=== PATIENT | male | born 1965 | race Two or more races ===

== ENCOUNTER 2025-02-26 14:43 | Inpatient (IN) | payer MEDICAID, OTHER ==
[~2025-02-26] VITALS: Ht 152.4 cm; Wt 101.0 kg
--- NOTE | 2025-02-26 15:22 | ED.PDOC ---
HPI (NEURO) HPI Comments 59 y.o male with PMHx of DM and HTN, presents to the ED for a chief complaint of a generalized headache associated with blurred vision that started this morning around 10:00am. Patient reports he woke up with a sharp pain localized at the top of his head and is now generalized. He mentions his vision has worsened over the past couple of months however today states blurred vision is at its worse. He usually compliant with all his medication but ran out of his DM medication in which he takes pills (unsure of name) and Ozempic a couple days ago. Upon ED arrival, patient had a BG of 385. He denies any recent head injury, nausea, vomiting, tremors, SOB, abdominal pain, fever, chills or recent illness. Chief Complaint: Headache Time Seen by MD: 15:06 Reviewed Notes: Nurses Notes, Medications, Allergies Mode of Arrival: Ambulatory Severity: Moderate Headache Severity: Moderate, Worst Headache of life Timing: Hours Duration: Since onset Headache Quality: Sharp Headache Location: Generalized Onset: At rest Circumstances: Spontaneous Symptoms: Change of vision History of: DM, Hypertension Associated Signs and Symptoms: Headache, Blurred Vision Past Medical History PAST MEDICAL HISTORY: DM, HTN Family History Family History: Reviewed,noncontributory to illness Social History Smoker: Non-Smoker Alcohol: Denies ETOH Use Drugs: Denies Drug Use Lives In: Home Constitutional: denies: chills, diaphoresis, fatigue, fever, malaise, sweats, weakness, others EENTM: denies: blurred vision, double vision, ear bleeding, ear discharge, ear drainage, ear pain, ear ringing, eye pain, eye redness, hearing loss, mouth pain, mouth swelling, nasal discharge, nose bleeding, nose congestion, nose pain, photophobia, tearing, throat pain, throat swelling, voice changes, others Respiratory: denies: cough, hemoptysis, orthopnea, SOB at rest, shortness of breath, SOB with excertion, stridor, wheezing, others Cardiovascular: denies: chest pain, dizzy spells, diaphoresis, Dyspnea on exertion, edema, irregular heart beat, left arm pain, lightheadedness, palpitations, PND, syncope, others Gastrointestinal: denies: abdomen distended, abdominal pain, blood streaked bowels, constipated, diarrhea, dysphagia, difficulty swallowing, hematemesis, melena, nausea, poor appetite, poor fluid intake, rectal bleeding, rectal pain, vomiting, others Genitourinary: denies: burning, dysuria, flank pain, frequency, hematuria, incontinence, penile discharge, penile sore, pain, testicle pain, testicle swelling, urgency, others Neurological: reports: headache, others; denies: dizziness, fainting, left sided numbness, left sided weakness, numbness, paresthesia, pre-existing deficit, right sided numbness, right sided weakness, seizure, speech problems, tingling, tremors, weakness Musculoskeletal: denies: back pain, gout, joint pain, joint swelling, muscle pain, muscle stiffness, neck pain, others Integumetry: denies: bruises, change in color, change in hair/nails, dryness, laceration, lesions, lumps, rash, wounds, others Allergic/Immunocompromised: denies: Difficulty Healing, Frequent Infections, Hives, Itching, others Hematologic/Lymphatic: denies: anemia, blood clots, easy bleeding, easy bruising, swollen glands, others Endocrine: denies: excessive hunger, excessive sweating, excessive thirst, excessive urination, flushing, intolerance to cold, intolerance to heat, unexplained weight gain, unexplained weight loss, others Psychiatric: denies: anxiety, bipolar disorder, depression, hopeless, panic disorder, schizophrenia, sleepless, suicidal, others All Other Systems: Reviewed and Negative Physical Exam General Appearance: No Apparent Distress, Normal HEENT: Normal ENT Inspection, Pharynx Normal, TMs Normal Neck: Full Range of Motion, Non-Tender, Normal, Normal Inspection Respiratory: Chest Non-Tender, Lungs Clear, No Accessory Muscle Use, No Respira tory Distress, Normal Breath Sounds Cardiovascular: No Edema, No JVD, No Murmur, No Gallop, Normal Peripheral Pulses, Regular Rate/Rhythm Breast Exam: Deferred Gastrointestinal: No Organomegaly, Non Tender, No Pulsatile Mass, Normal Bowel Sounds, Soft Genitalia: Deferred Pelvic: Deferred Rectal: Deferred Extremities: No calf tenderness, Normal capillary refill, Normal inspection, Normal range of motion, Non-tender, No pedal edema Musculoskeletal : Apperance: Normal Neurologic: Alert, christmas tree grader II-XII nml as Tested, No Motor Deficits, Normal Affect, Normal Mood, No Sensory Deficits Cerebellar Function: Normal Reflexes: Normal Skin: Dry, Normal Color, Warm Lymphatic: No Adenopathy Was a procedure done? Was a procedure done?: No Differential Diagnosis (SZ) CVA: CVA, TIA Headache: Cluster, Migraine, CVA, Intracerebral Hemorrhage, Subarachnoid Hemorrhage, Other (hyperglycemia, DKA) X-Ray, Labs, Meds, VS Vital Signs Date Time Temp Pulse Resp B/P (MAP) Pulse Ox O2 Delivery O2 Flow Rate FiO2 02/26/25 17:03 98.7 71 16 149/104 (119) 95 98.7 02/26/25 14:47 97.7 77 18 160/96 95 97.7 Lab Test 02/26/25 16:00 Range/Units White Blood Count 6.8 4.4-10.8 10^3/uL Red Blood Count 5.63 4.5-5.90 10^6/uL Hemoglobin 16.5 13.5-17.5 g/dL Hematocrit 47.9 41.0-53.0 % Mean Corpuscular Volume 85.1 80.0-100.0 fL Mean Corpuscular Hemoglobin 29.4 28.0-32.0 pg Mean Corpuscular Hemoglobin Concent 34.5 32.0-36.0 g/dL Red Cell Distribution Width 14.1 11.8-14.3 % Platelet Count 104 L 140-450 10^3/uL Mean Platelet Volume 9.9 6.9-10.8 fL Neutrophils (%) (Auto) 61.1 37.0-80.0 % Lymphocytes (%) (Auto) 28.7 10.0-50.0 % Monocytes (%) (Auto) 8.2 0.0-12.0 % Eosinophils (%) (Auto) 1.6 0.0-7.0 % Basophils (%) (Auto) 0.4 0.0-2.0 % Neutrophils # (Auto) 4.1 1.6-8.6 10 ^3/uL Lymphocytes # (Auto) 1.9 0.4-5.4 10 ^3/uL Monocytes # (Auto) 0.6 0-1.3 10 ^3/uL Eosinophils # (Auto) 0.1 0-0.8 10 ^3/uL Basophils # (Auto) 0 0-0.2 10 ^3/uL Nucleated Red Blood Cells 0.1 % Sodium Level 136 136-145 mmol/L Potassium Level 4.2 3.5-5.1 mmol/L Chloride Level 99 98-107 mmol/L Carbon Dioxide Level 27 20-31 mmol/L Anion Gap 10 5-15 Blood Urea Nitrogen 16 9-23 mg/dL Creatinine 1.20 0.700-1.30 mg/dL Glomerular Filtration Rate Calc 70 >90 mL/min BUN/Creatinine Ratio 13.3 10.0-20.0 Serum Glucose 298 H 74-106 mg/dL Calcium Level 10.0 8.7-10.4 mg/dL Troponin I High Sensitivity 6 </=54 ng/L Time of 1ST Reevaluation: 15:21 Reevaluation 1ST: Unchanged Patient Education/Counseling: Diagnosis, Treatment, Prognosis Family Education/Counseling: No Family Present Departure 1 Departure Time of Disposition: 17:21 (Patient presents with signs symptoms concerning for TIA versus CVA. Patient's CT scan shows chronic involutional changes. X-ray looks benign. We will admit patient for further workup and expert consultation) Impression: Primary Impression: Blurry vision Additional Impressions: Generalized weakness Migraine Disposition: 09 ADMITTED INPATIENT Admit to: Tele Condition: Guarded Critical Care Note Critical Care Time?: Yes Critical care comment: Concern for TIA versus CVA Authorized and Performed by: Tiffani Lopez MD Total critical care time: Approximately 36 minutes Due to a high probability of clinically significant, life threatening deterioration, the patient required my highest level of preparedness to intervene emergently and I personally spent this critical care time directly and personally managing the patient. This critical care time included obtaining a history; examining the patient; pulse oximetry; ordering and review of studies; arranging urgent treatment with development of a management plan; evaluation of patient's response to treatment; frequent reassessment; and, discussions with other providers. This critical care time was performed to assess and manage the high probability of imminent, life-threatening deterioration that could result in multi-organ failure. It was exclusive of separately billable procedures and treating other patients and teaching time. Please see my other sections and the rest of the note for further information on patient assessment and treatment. Stability Stability form required: No I personally scribed for TIFFANI LOPEZ MD ([email or web address]) on 02/26/25 at 15:22. Electronically submitted by Jessy Mathews ([facility]). TIFFANI LOPEZ MD Feb 26, 2025 15:22
--- NOTE | 2025-02-26 16:19 | DVH ---
EXAM: XY CHEST PORTABLE HISTORY: ams, blurred vision TECHNIQUE: 1 view of the chest COMPARISON: None FINDINGS/IMPRESSION: LUNGS: No pleural effusion, consolidation, or pneumothorax. MEDIASTINUM: Unremarkable. BONES: No acute osseous abnormality. OTHER: None.
[2025-02-26 16:25] LABS: Hematocrit 47.9 % (41.0-53.0); Hemoglobin 16.5 g/dL (13.5-17.5); Mean Corpuscular Hemoglobin 29.4 pg (28.0-32.0); Mean Corpuscular Volume 85.1 fL (80.0-100.0); Nucleated Red Blood Cells % 0.1 %
--- NOTE | 2025-02-26 16:25 | DVH ---
CT HEAD WITHOUT CONTRAST INDICATION: ams, blurred vision EXAM DATE: 02/26/2025 03:46 PM COMPARISON: None RADIATION DOSE: CTDIvol: 53.5 mGy, DLP: 966.6 mGy*cm PROCEDURE: CT scans of the head were obtained from the vertex to the skull base. Sagittal and coronal reconstructions were provided. All CT scans at this medical facility are performed using dose modulation techniques as appropriate to a performed exam including the following: Automated exposure control was utilized; adjustment of the MA and/or KV according to patient size; and use of iterative reconstruction technique. FINDINGS: Evaluation is slightly degraded by motion artifact and positioning. No acute territorial infarct, intracranial hemorrhage, or mass effect. There are global involutional changes with compensatory prominence of the ventricles and sulci. The orbits are normal. The paranasal sinuses and mastoid air cells are clear. The osseous structures are unremarkable. IMPRESSION: 1. No acute territorial infarct, intracranial hemorrhage, or mass effect. 2. Age-related involutional changes. 3. If clinical symptoms persist, MRI may be beneficial in further evaluation.
[2025-02-26 16:34] LABS: Chloride 99 mmol/L (98-107); Potassium 4.2 mmol/L (3.5-5.1)
[2025-02-26 16:35] LABS: Anion Gap 10 (5-15); Carbon Dioxide 27 mmol/L (20-31)
[2025-02-26 16:36] LABS: Calcium 10.0 mg/dL (8.7-10.4); Sodium 136 mmol/L (136-145)
[2025-02-26 16:40] LABS: BUN/Creatinine Ratio 13.3 (10.0-20.0); Blood Urea Nitrogen 16 mg/dL (9-23)
[2025-02-26 16:42] LABS: Glucose 298 mg/dL (74-106)
[2025-02-26 18:50] VITALS: PULSE 68; RESP 15; O2SAT 97
[2025-02-26] MEDS: METOCLOPRAMIDE HCL 5MG/ml INJ 2ml VIAL IV ONE (19:00)
[2025-02-26] MEDS: ACETAMINOPHEN 325 MG TAB PO ONE ×2 (19:01→20:40)
[2025-02-26] MEDS: SODIUM CHLORIDE 0.9% 1,000 ML IV ONE (19:01)
[2025-02-26 19:41] LABS: Urine Protein, UAD 1+ (Negative)
[2025-02-26] MEDS: METOCLOPRAMIDE HCL 5MG/ml INJ 2ml VIAL ONE (20:39)
[2025-02-26 21:05] VITALS: O2SAT 89
[2025-02-26] MEDS ORDERED: DEXTROSE (50%) 50ML SYRG IV PRN (21:15)
--- NOTE | 2025-02-26 21:23 | DVHHPRES ---
History of Present Illness Resident Creating Document: LILLIE BRYAN RESIDENT History of Present Illness Mr Elie Vigil 59-year-old male with a past medical history of insulin non- dependent type 2 diabetes mellitus, hypertension compliant with medications, hypercholesterolemia, diverticulosis presented to the ER with the complaints of frontal headache later radiating to whole head, no associated nausea, vomiting or fever. He takes his antihypertensive medications regularly. He had 1 episode of blurry vision, now improved. He denies any dizziness, loss of consciousness or altered mental status. He does not have any chest pain, shortness of breath, abdominal pain, urinary symptoms or any other complaints. Past medical and surgical history: As above Smoking history: 1 cigarette per day, for many years Alcohol: Never Drugs: Never Allergies: None Home medications: Losartan 100 mg, metformin, patient could not recall rest of the home medicines PCP: Code status: Review of Systems Other Headache Allergies: Coded Allergies: NO KNOWN ALLERGIES (Unverified , 02/26/25) Exam Vital Signs Vital Signs Date Time Temp Pulse Resp B/P (MAP) Pulse Ox O2 Delivery O2 Flow Rate FiO2 02/26/25 18:50 98.6 68 15 146/91 (109) 97 98.6 02/26/25 18:50 Room Air* 0 21 Exam Pt is lying on bed General Appearance: Alert, Oriented X3, Cooperative, Mild distress HEENT: Atraumatic, Mucous membranes moist/pink Respiratory: Clear to auscultation, Normal air movement, No added sounds Cardiovascular: Regular rate, Normal S1, Normal S2, No murmurs Abdominal/ : Active bowel sounds, Soft, no distention, no swelling or tenderness. Extremities: No edema, Normal pulses, No tenderness/swelling Skin: No Significant rash, except past surgical scars Neuro: Normal speech, sensorimotor deficits none Psych/Mental Status: Mental status NL, Mood NL Nurse was there as baker during examination Labs/Xrays Labs Test 02/26/25 19:11 02/26/25 18:59 02/26/25 16:00 Range/Units Troponin I High Sensitivity 7 </=54 ng/L Urine Color Yellow Yellow Urine Clarity Clear Clear Urine pH 6.0 5.0-9.0 Urine Specific [place] 1.035 1.001-1.035 Urine Protein 1+ H Negative Urine Ketones Negative Negative Urine Blood Negative Negative /uL Urine Nitrite Negative Negative Urine Bilirubin Negative Negative Urine Urobilinogen Normal Negative mg/dL Urine Leukocyte Esterase Negative Negative /uL Urine RBC 3 0 - 3 /hpf Urine Microscopic WBC < 1 0-3 /HPF Urine Squamous Epithelial Cells Few <5 /hpf Urine Bacteria None seen None Seen /hpf Urine Glucose 4+ H Normal mg/dL White Blood Count 6.8 4.4-10.8 10^3/uL Red Blood Count 5.63 4.5-5.90 10^6/uL Hemoglobin 16.5 13.5-17.5 g/dL Hematocrit 47.9 41.0-53.0 % Mean Corpuscular Volume 85.1 80.0-100.0 fL Mean Corpuscular Hemoglobin 29.4 28.0-32.0 pg Mean Corpuscular Hemoglobin Concent 34.5 32.0-36.0 g/dL Red Cell Distribution Width 14.1 11.8-14.3 % Platelet Count 104 L 140-450 10^3/uL Mean Platelet Volume 9.9 6.9-10.8 fL Neutrophils (%) (Auto) 61.1 37.0-80.0 % Lymphocytes (%) (Auto) 28.7 10.0-50.0 % Monocytes (%) (Auto) 8.2 0.0-12.0 % Eosinophils (%) (Auto) 1.6 0.0-7.0 % Basophils (%) (Auto) 0.4 0.0-2.0 % Neutrophils # (Auto) 4.1 1.6-8.6 10 ^3/uL Lymphocytes # (Auto) 1.9 0.4-5.4 10 ^3/uL Monocytes # (Auto) 0.6 0-1.3 10 ^3/uL Eosinophils # (Auto) 0.1 0-0.8 10 ^3/uL Basophils # (Auto) 0 0-0.2 10 ^3/uL Nucleated Red Blood Cells 0.1 % Sodium Level 136 136-145 mmol/L Potassium Level 4.2 3.5-5.1 mmol/L Chloride Level 99 98-107 mmol/L Carbon Dioxide Level 27 20-31 mmol/L Anion Gap 10 5-15 Blood Urea Nitrogen 16 9-23 mg/dL Creatinine 1.20 0.700-1.30 mg/dL Glomerular Filtration Rate Calc 70 >90 mL/min BUN/Creatinine Ratio 13.3 10.0-20.0 Serum Glucose 298 H 74-106 mg/dL Calcium Level 10.0 8.7-10.4 mg/dL SEPSIS Sepsis Screen Date sepsis recognized/suspect: Feb 26, 2025 Time Sepsis recognized/suspect: 1448 Recent Procedure: No On Antibiotic Therapy: No Respiratory Rate >20: No Heart Rate >90: No Temp<36 C (96.8 F) or >38.3 C: No SBP <90 or MAP <65 mmHG: No New Acute Mental Status Change: No Is the patient on CPAP, BIPAP,: No Physician Orders Chest Portable (02/26/25 15:45) Head Without Contrast (02/26/25 15:45) Electrocardigram (02/26/25 15:45) Electrocardigram (02/26/25 16:45) Electrocardigram (02/26/25 18:45) Admit (02/26/25 21:10) Stat Ekg For Chest Pain (02/26/25 21:10) Notify Md Of Changes From Base (02/26/25 21:10) Metal Tank Erector For 24 Hours (02/26/25 21:10) Emergency Dysrhythmia Protocol (02/26/25 21:10) Rhythm Strips Once Every Shift (02/26/25 21:10) Urinalysis (02/26/25 21:14) Drug Screen (02/26/25 21:14) Insulin Lantus (Glargine) (Lantus) (02/27/25 07:00) Glucose Blood (Accu-Chek Comfort Curve T (02/26/25 22:00) Mild Sliding Scale (02/26/25 22:00) Dextrose 50% Syringe (02/26/25 21:15) Losartan Tablet (Cozaar Tablet) (02/27/25 10:00) Echo 2d Mode Cardiac Dop (02/26/25 21:14) B-Type Natriuretic Peptide (02/26/25 21:14) Vital Signs Date Time Temp Pulse Resp B/P (MAP) Pulse Ox O2 Delivery O2 Flow Rate FiO2 02/26/25 18:50 98.6 68 15 146/91 (109) 97 98.6 02/26/25 18:50 68 15 97 Room Air* 0 21 02/26/25 17:03 98.7 71 16 149/104 (119) 95 98.7 02/26/25 14:47 97.7 77 18 160/96 95 97.7 Laboratory Tests Test 02/26/25 16:00 White Blood Count 6.8 10^3/uL (4.4-10.8) Medications Medications Dose Ordered Sig/Analia Route Start Time Stop Time Status Last Admin Dose Admin Acetaminophen 650 mg ONCE ONCE PO 02/26/25 17:30 02/26/25 17:43 DC 02/26/25 19:01 650 MG Metoclopramide HCl 10 mg ONCE ONCE IV 02/26/25 17:30 02/26/25 17:43 DC 02/26/25 19:00 10 MG Sodium Chloride 1,000 ml @ 1,000 mls/hr Q1H ONCE IV 02/26/25 17:30 02/26/25 18:29 DC 02/26/25 19:01 1,000 MLS/HR Assessment/Plan Assessment/Plan Hypertensive urgency with intractable headache -head CT:No acute territorial infarct, intracranial hemorrhage, or mass effect.Age-related involutional changes. If clinical symptoms persist, MRI may be beneficial in further evaluation. -Tylenol -losartan 100 mg -EKG and echocardiography ordered -troponin normal Uncontrolled type 2 diabetes mellitus -Hemoglobin A1c 10.6 -insulin Lantus -Insulin sliding scale -monitor blood glucose GI prophylaxis: Pantoprazole DVT prophylaxis: Lovenox Diet: Cardiac Goals of care discussed with the patient for more than 27 minutes: Full code status Case discussed with , patient and RN Plan discussed with: Patient, Other (RN) My Orders Orders - LILLIE BRYAN RESIDENT Procedure Category Date Status Time Admit ADMIT 02/26/25 Transmitted 21:10 Stat Ekg For Chest [facility] 02/26/25 In Process Pain 21:10 Notify Md Of Changes [facility] 02/26/25 In Process From Base 21:10 Metal Tank Erector For [facility] 02/26/25 In Process 24 Hours 21:10 Emergency Dysrhythmia [facility] 02/26/25 In Process Protocol 21:10 Rhythm Strips Once [facility] 02/26/25 In Process Every Shift 21:10 Urinalysis LAB 02/26/25 Transmitted 21:14 Drug Screen LAB 02/26/25 Transmitted 21:14 Insulin Lantus PHA 02/27/25 Logged (Glargine) (Lantus) 07:00 Glucose Blood PHA 02/26/25 Transmitted (Accu-Chek Comfort 22:00 Mild Sliding Scale PHA 02/26/25 Transmitted 22:00 Dextrose 50% Syringe PHA 02/26/25 Transmitted 21:15 Losartan Tablet PHA 02/27/25 Transmitted (Cozaar Tablet) 10:00 Echo 2d Mode Cardiac US 02/26/25 Logged DOP 21:14 B-Type Natriuretic LAB 02/26/25 Transmitted Peptide 21:14 Date of Service: Feb 26, 2025 Billing Provider: DULCE TERRY MD Common Visit Codes: [id number] INP/OBS CARE (HIGH) Secondary Visit Codes: [id number] CARE PLAN 30 MINUTES LILLIE BRYAN RESIDENT Feb 26, 2025 21:23
[2025-02-26] MEDS: ACCU-CHEK COMFORT CURVE STRIP VI SCH (22:37)
[2025-02-26] MEDS: InsuLIN REG 1unit/0.01ml Soln (100units/ml) SC SCH (22:48)
[2025-02-27] VITALS (11 sets, daily range): BP systolic 123–140; BP diastolic 78–93; PULSE 60–78; RESP 13–18; TEMP 97.7–98.4; O2SAT 91–97
[2025-02-27 01:30] LABS: Opiate Scree,Urine Pos (NEGATIVE)
[2025-02-27 01:31] LABS: Amphetamine Screen, Urine Neg (NEGATIVE); Barbiturate Scree,Urine Neg (NEGATIVE); Benzodiazephine Screen, Urine Neg (NEGATIVE); Cannabinoid Screen, Urine Neg (NEGATIVE); Cocaine Screen, Urine Neg (NEGATIVE); Phencyclidine Screen, Urine Neg (NEGATIVE)
[2025-02-27] MEDS ORDERED: GLUC0.8I2 (01:43)
[2025-02-27] MEDS ORDERED: HYDR-4902 PO (01:43)
[2025-02-27] MEDS ORDERED: METF-370 PO (01:43)
[2025-02-27] MEDS: PANTOPRAZOLE 40 MG TAB PO SCH (06:14)
[2025-02-27] MEDS: INSULIN LANTUS (GLARGINE) 1 /0.01ml (100units/ml) SC SCH (06:15)
--- NOTE | 2025-02-27 06:20 | ECG ---
[facility] Test Date: 2025-02-26 Test Time: 21:37:15 Pat Name: JOHN SHERMAN Department: Room: [address] [place] [address] Gender: M Talent Manager: LAUREN : 1965 Requested By: TIFFANI ALFARO Order Number: [id number] Reading MD: Chuck Godoy Measurements Intervals [place] Rate: 62 P: 29 FL: 166 QRS: 40 QRSD: 92 T: 45 QT: 428 QTc: 435 Interpretive Statements Sinus rhythm Electronically Signed On 02-27-2025 10:37:32 PST by Chuck Godoy Please click the below link to view image of tracing.
[2025-02-27] MEDS: ENOXAPARIN SOD 30 MG/0.3 ML SYRINGE ONE (08:55)
[2025-02-27] MEDS: LOSARTAN POTASSIUM 50 MG TAB ONE (08:56)
[2025-02-27] MEDS: LOSARTAN POTASSIUM 50 MG TAB PO SCH (09:36)
[2025-02-27] MEDS: ENOXAPARIN SOD 30 MG/0.3 ML SYRINGE SC SCH (09:37)
[2025-02-27 14:00] LABS: Chloride 101 mmol/L (98-107); Potassium 4.0 mmol/L (3.5-5.1); Sodium 137 mmol/L (136-145)
[2025-02-27 14:01] LABS: Anion Gap 10 (5-15); Calcium 9.3 mg/dL (8.7-10.4); Carbon Dioxide 26 mmol/L (20-31)
[2025-02-27 14:06] LABS: BUN/Creatinine Ratio 15.8 (10.0-20.0); Blood Urea Nitrogen 15 mg/dL (9-23)
[2025-02-27 14:09] LABS: Glucose 199 mg/dL (74-106)
--- NOTE | 2025-02-27 15:17 | DVHPN2 ---
Subjective This is a follow up on hypertensive urgency. Patient is currently denies any headache. 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 Medications Current Medications Medications Dose Ordered Sig/Analia Route Start Time Stop Time Status Last Admin Dose Admin Insulin Glargine 20 units QAM SC 02/27/25 07:00 Diagnostic Test (Pha) 1 strip ACHS 02/26/25 22:00 02/27/25 11:59 1 STRIP Insulin Human Regular ACHS SC 02/26/25 22:00 02/27/25 12:00 6 UNITS Dextrose 50 ml UD PRN IV 02/26/25 21:15 Losartan Potassium 100 mg DAILY PO 02/27/25 10:00 02/27/25 09:36 100 MG Pantoprazole Sodium 40 mg DAILY@0600 PO 02/27/25 06:00 02/27/25 06:14 40 MG Enoxaparin Sodium 30 mg DAILY SC 02/27/25 10:00 02/27/25 09:37 30 MG Laboratory Results Laboratory Tests 02/26/25 16:00 02/27/25 13:32 Chemistry Test 02/26/25 16:00 02/27/25 13:32 Calcium Level 10.0 mg/dL (8.7-10.4) 9.3 mg/dL (8.7-10.4) Cardiac Markers Test 02/26/25 16:00 B-Type Natriuretic Peptide 7.50 pg/mL (0-100) HgA1c, TSH Test 02/26/25 16:00 02/26/25 19:11 Hemoglobin A1c 10.6 % A1C (<5.7) H Thyroid Stimulating Hormone (TSH) 1.70 uIU/mL (0.55-4.78) Urinalysis Test 02/26/25 18:59 Urine Color Yellow (Yellow) Urine Clarity Clear (Clear) Urine pH 6.0 (5.0-9.0) Urine Specific [place] 1.035 (1.001-1.035) Urine Protein 1+ (Negative) H Urine Ketones Negative (Negative) Urine Blood Negative /uL (Negative) Urine Nitrite Negative (Negative) Urine Bilirubin Negative (Negative) Urine Urobilinogen Normal mg/dL (Negative) Urine Leukocyte Esterase Negative /uL (Negative) Urine RBC 3 /hpf (0 - 3) Urine Microscopic WBC < 1 /HPF (0-3) Urine Squamous Epithelial Cells Few /hpf (<5) Urine Bacteria None seen /hpf (None Seen) Urine Glucose 4+ mg/dL (Normal) H Assessment/Plan Assessment/Plan 59-year-old male with a known history of diabetes mellitus type 2, hypertension, dyslipidemia, morbid obesity classIII who initially presented to the hospital with a intractable headache found to have 1. Hypertensive urgency 2. Acute cephalgia currently resolved 3. Hyperglycemia in the setting of diabetes mellitus type 2 with a hemoglobin A1c more than10 4. Dyslipidemia 5. Morbid obesity classIII -add insulin Lantus, continue losartan, discharge plan. -diabetic education. Plan discussed with: Patient My Orders Orders - CALEB RANGEL MD Procedure Category Date Status Time Basic Metabolic Panel LAB 02/28/25 Verified 06:00 Complete Blood Count LAB 02/28/25 Verified 06:00 Magnesium LAB 02/28/25 Verified 06:00 Date of Service: Feb 27, 2025 Billing Provider: CALEB RANGEL MD Common Visit Codes: [id number] INP/OBS CARE(HIGH) CALEB RANGEL MD Feb 27, 2025 15:17
--- NOTE | 2025-02-27 17:33 | DVHSR ---
APPROVED REPORT EXAM: Two-dimensional and M-mode echocardiogram with Doppler and color Doppler. Blood Pressure: 129/81 mmHg INDICATION Hypertensive heart disease RISK FACTORS Obesity: Height: 5'0", Weight: 220 DIMENSIONS LVDd 4.8 (3.8-5.7cm) LA (2D) 3.1 (1.9-4.0cm) Aortic Root 3.7 (2.0-3.7cm) LVDs 3.5 (2.5-4.0cm) LA (MM) (1.9-4.0cm) Aortic Cusp Exc 1.7 (1.5-2.0cm) EF (%) 55.0 (55-70%) Rt. Atrium 3.6 (1.9-4.0cm) Asc. Aorta cm IVSd 1.3 (0.7-1.1cm) RV (D) (1.8-2.4cm) PWd 1.2 (0.7-1.1cm) Mitral Valve Mitral Mitral Stenosis E wave 0.65m/s MV Mean GR. mmHg A wave 0.82m/s MV Peak GR. mmHg E/A ratio 0.8 2D MVA cm2 DECEL Time 268ms PRESS 1/2 Time ms Aortic Valve Aortic Valve Aortic Stenosis V1 0.99m/s AO Mean GR. 3mmHg V2 1.16m/s AO Peak GR. 5mmHg LVOT Diameter 2.1 (1.8-2.4cm) Doppler STALIN 2.95cm2 Pulmonic Valve V2 1.05m/s Other Information Technically limited study due to body habitus. Conclusion Technically good study. Sinus rhythm. Aortic root enlargement with concentric LVH. Valves are normal. EF of 60% with normal RV function. Doppler reveals no significant regurgitant jets. No pericardial effusion masses or vegetations.
[2025-02-28] VITALS (8 sets, daily range): BP systolic 111–140; BP diastolic 74–92; PULSE 64–84; RESP 14–18; TEMP 97.6–98.8; O2SAT 95–99
[2025-02-28] MEDS: PANTOPRAZOLE 40 MG TAB PO ONE (04:35)
[2025-02-28 07:23] LABS: Hematocrit 45.8 % (41.0-53.0); Hemoglobin 15.8 g/dL (13.5-17.5); Mean Corpuscular Hemoglobin 29.6 pg (28.0-32.0); Mean Corpuscular Volume 85.6 fL (80.0-100.0); Nucleated Red Blood Cells % 0.4 %
[2025-02-28 07:40] LABS: Anion Gap 10 (5-15); Carbon Dioxide 29 mmol/L (20-31); Chloride 101 mmol/L (98-107); Potassium 4.2 mmol/L (3.5-5.1); Sodium 140 mmol/L (136-145)
[2025-02-28 07:41] LABS: Calcium 9.6 mg/dL (8.7-10.4)
[2025-02-28 07:46] LABS: BUN/Creatinine Ratio 13.0 (10.0-20.0); Blood Urea Nitrogen 13 mg/dL (9-23); Magnesium 2.0 mg/dL (1.6-2.6)
[2025-02-28 07:47] LABS: Glucose 164 mg/dL (74-106)
[2025-02-28] MEDS: ENOXAPARIN SOD 30 MG/0.3 ML SYRINGE ONE (09:11)
--- NOTE | 2025-02-28 16:03 | DVHPN2 ---
Subjective This is a follow up on hypertensive urgency. Patient is currently denies any headache. Patient's blood sugars were uncontrolled, hemoglobin A1C>10. 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 Medications Current Medications Medications Dose Ordered Sig/Analia Route Start Time Stop Time Status Last Admin Dose Admin Insulin Glargine 20 units QAM SC 02/27/25 07:00 02/28/25 05:00 20 UNITS Diagnostic Test (Pha) 1 strip ACHS 02/26/25 22:00 02/28/25 11:30 1 STRIP Insulin Human Regular ACHS SC 02/26/25 22:00 02/28/25 11:30 3 UNITS Dextrose 50 ml UD PRN IV 02/26/25 21:15 Losartan Potassium 100 mg DAILY PO 02/27/25 10:00 02/28/25 09:25 100 MG Pantoprazole Sodium 40 mg DAILY@0600 PO 02/27/25 06:00 02/28/25 04:57 40 MG Enoxaparin Sodium 30 mg DAILY SC 02/27/25 10:00 02/28/25 09:25 30 MG Laboratory Results Laboratory Tests 02/28/25 06:31 Chemistry Test 02/28/25 06:31 Calcium Level 9.6 mg/dL (8.7-10.4) Magnesium Level 2.0 mg/dL (1.6-2.6) Urinalysis Test 02/26/25 18:59 Urine Color Yellow (Yellow) Urine Clarity Clear (Clear) Urine pH 6.0 (5.0-9.0) Urine Specific [place] 1.035 (1.001-1.035) Urine Protein 1+ (Negative) H Urine Ketones Negative (Negative) Urine Blood Negative /uL (Negative) Urine Nitrite Negative (Negative) Urine Bilirubin Negative (Negative) Urine Urobilinogen Normal mg/dL (Negative) Urine Leukocyte Esterase Negative /uL (Negative) Urine RBC 3 /hpf (0 - 3) Urine Microscopic WBC < 1 /HPF (0-3) Urine Squamous Epithelial Cells Few /hpf (<5) Urine Bacteria None seen /hpf (None Seen) Urine Glucose 4+ mg/dL (Normal) H Assessment/Plan Assessment/Plan 59-year-old male with a known history of diabetes mellitus type 2, hypertension, dyslipidemia, morbid obesity classIII who initially presented to the hospital with a intractable headache found to have 1. Hypertensive urgency 2. Acute cephalgia currently resolved 3. Hyperglycemia in the setting of diabetes mellitus type 2 with a hemoglobin A1c more than10 4. Dyslipidemia 5. Morbid obesity classIII -add insulin Lantus, continue losartan, discharge plan. -diabetic education. Insulin Lantus teaching Plan discussed with: Patient Date of Service: Feb 28, 2025 Billing Provider: CALEB RANGEL MD Common Visit Codes: [id number] INP/OBS CARE(HIGH) CALEB RANGEL MD Feb 28, 2025 16:03
[2025-03-01] VITALS (7 sets, daily range): BP systolic 115–145; BP diastolic 69–99; PULSE 65–72; RESP 16–18; TEMP 37; O2SAT 96–99
[2025-03-01] MEDS ORDERED: SITA50TA PO (15:49)
[2025-03-01] MEDS ORDERED: INSU-567 XX (15:49)
[2025-03-01] MEDS ORDERED: INSLANTI SC (15:49)
[2025-03-01] MEDS ORDERED: BLOO1KIT60 XX (15:49)
[2025-03-01] MEDS ORDERED: LANC-347 XX (15:49)
--- NOTE | 2025-03-01 15:50 | DVHDS2 ---
Discharge Summary Date of Admission Feb 26, 2025 at 21:10 Date of Discharge: Mar 01, 2025 Labs/Diagnostic Data: Laboratory Results Test 03/01/25 10:54 02/28/25 06:31 02/26/25 19:11 02/26/25 18:59 POC Glucose 259 mg/dl (70-106) White Blood Count 6.0 10^3/uL (4.4-10.8) Red Blood Count 5.35 10^6/uL (4.5-5.90) Hemoglobin 15.8 g/dL (13.5-17.5) Hematocrit 45.8 % (41.0-53.0) Mean Corpuscular Volume 85.6 fL (80.0-100.0) Mean Corpuscular Hemoglobin 29.6 pg (28.0-32.0) Mean Corpuscular Hemoglobin Concent 34.6 g/dL (32.0-36.0) Red Cell Distribution Width 14.1 % (11.8-14.3) Platelet Count 100 10^3/uL (140-450) Mean Platelet Volume 9.8 fL (6.9-10.8) Neutrophils (%) (Auto) 54.5 % (37.0-80.0) Lymphocytes (%) (Auto) 34.0 % (10.0-50.0) Monocytes (%) (Auto) 8.2 % (0.0-12.0) Eosinophils (%) (Auto) 2.6 % (0.0-7.0) Basophils (%) (Auto) 0.7 % (0.0-2.0) Neutrophils # (Auto) 3.3 10 ^3/uL (1.6-8.6) Lymphocytes # (Auto) 2.0 10 ^3/uL (0.4-5.4) Monocytes # (Auto) 0.5 10 ^3/uL (0-1.3) Eosinophils # (Auto) 0.2 10 ^3/uL (0-0.8) Basophils # (Auto) 0 10 ^3/uL (0-0.2) Nucleated Red Blood Cells 0.4 % Sodium Level 140 mmol/L (136-145) Potassium Level 4.2 mmol/L (3.5-5.1) Chloride Level 101 mmol/L (98-107) Carbon Dioxide Level 29 mmol/L (20-31) Anion Gap 10 (5-15) Blood Urea Nitrogen 13 mg/dL (9-23) Creatinine 1.00 mg/dL (0.700-1.30) Glomerular Filtration Rate Calc 87 mL/min (>90) BUN/Creatinine Ratio 13.0 (10.0-20.0) Serum Glucose 164 mg/dL (74-106) Calcium Level 9.6 mg/dL (8.7-10.4) Magnesium Level 2.0 mg/dL (1.6-2.6) Troponin I High Sensitivity 7 ng/L (</=54) Thyroid Stimulating Hormone (TSH) 1.70 uIU/mL (0.55-4.78) Urine Color Yellow (Yellow) Urine Clarity Clear (Clear) Urine pH 6.0 (5.0-9.0) Urine Specific [place] 1.035 (1.001-1.035) Urine Protein 1+ (Negative) Urine Ketones Negative (Negative) Urine Blood Negative /uL (Negative) Urine Nitrite Negative (Negative) Urine Bilirubin Negative (Negative) Urine Urobilinogen Normal mg/dL (Negative) Urine Leukocyte Esterase Negative /uL (Negative) Urine RBC 3 /hpf (0 - 3) Urine Microscopic WBC < 1 /HPF (0-3) Urine Squamous Epithelial Cells Few /hpf (<5) Urine Bacteria None seen /hpf (None Seen) Urine Glucose 4+ mg/dL (Normal) Urine Opiates Screen Pos (NEGATIVE) Urine Fentanyl Screen Neg (NEGATIVE) Urine Barbiturates Screen Neg (NEGATIVE) Urine Phencyclidine Screen Neg (NEGATIVE) Urine Amphetamines Screen Neg (NEGATIVE) Urine Benzodiazepines Screen Neg (NEGATIVE) Urine Cocaine Screen Neg (NEGATIVE) Urine Cannabinoids Screen Neg (NEGATIVE) Test 02/26/25 16:00 Hemoglobin A1c 10.6 % A1C (<5.7) B-Type Natriuretic Peptide 7.50 pg/mL (0-100) Other Laboratory Tests 02/28/25 06:31 Brief Hx & Hospital Course: 59-year-old male with a known history of diabetes mellitus type 2, hypertension, dyslipidemia, morbid obesity classIII who initially presented to the hospital with a intractable headache found to have hypertensive urgency. Patient acute has a has been resolved. Patient had a high blood sugar in the setting of diabetes mellitus type 2 with a hemoglobin A1c more than 10. Patient was given diabetic education. Patient is being discharged under stable condition. Diet weight reduction and exercise counseling has been discussed. Please follow up with the PCP upon discharge. Condition at Discharge: Stable Final Diagnosis/Problems List 59-year-old male with a known history of diabetes mellitus type 2, hypertension, dyslipidemia, morbid obesity classIII who initially presented to the hospital with a intractable headache found to have 1. Hypertensive urgency , resolved 2. Acute cephalgia currently resolved 3. Hyperglycemia in the setting of diabetes mellitus type 2 with a hemoglobin A1c more than10 4. Dyslipidemia 5. Morbid obesity classIII Discharge Disposition: Home SNF Discharge Will this Physician continue t: No Discharge Instruct/Medications Diet: Cardiac 2g Na,low cholest Diet comment: 1800 ADA diet Activity: No Restrictions, As Tolerated Follow Up/Referral: With the PCP in 1-2 weeks Medications: Medication as prescribed and reconciled. New Medications: Blood Glucose Monitoring Suppl (D-Care Glucometer Kit/Glu W/Device) 1 Kit Kit KIT XX, #1 Insulin Syringe/Needle U-100 ([facility] Insulin Syringe/) 0.5 Mg/31 G Mis UNITS XX DAILY, #20 Lancets (Freestyle Lancets) Lancets Mis BOX XX, #1 Sitagliptin Phosphate (Januvia) 50 Mg Tab 1 TAB PO DAILY, #30 TAB 5 Refills Insulin Glargine (Lantus) 100 Unit/Ml Inj 20 UNITS SC QAM for 30 Days, #30 INJ Continued Medications: Glucagon Hydrochloride (Glucagon) 1 Mg Inj 1 MG, INJ Hydrocodone-Acetaminophen (Hydrocodone Bitartrate/AC 5-325 mg) 1 Tab Tab 1 TAB PO PRN for back pain, TAB Metformin Hydrochloride (Metformin Hcl) 500 Mg Tab 1000 MG PO DAILY for 30 Days, MG Scheduled Hydrocodone-Acetaminophen (Hydrocodone Bitartrate/AC 5-325 mg), 1 TAB PO PRN, (Reported) Insulin Glargine (Lantus), 20 UNITS SC QAM Metformin Hydrochloride (Metformin Hcl), 1,000 MG PO DAILY, (Reported) Sitagliptin Phosphate (Januvia), 1 TAB PO DAILY Miscellaneous Medications Glucagon Hydrochloride (Glucagon), 1 MG, (Reported) Durable Medical Equipment Blood Glucose Monitoring Suppl (D-Care Glucometer Kit/Glu W/Device), KIT XX, (DME) Insulin Syringe/Needle U-100 ([facility] Insulin Syringe/), UNITS XX DAILY, (DME) Lancets (Freestyle Lancets), BOX XX, (DME) Discharge Statement: "Patient was advised to return to the ER or call 911 if any headaches, dizziness, shortness of breath, chest pain, abdominal pain, bleeding, fevers, or worsening of medical condition. Patient was counseled about treatment plan, medications, possible side effects, patientverbalized understanding. All questions were answered to the best of my ability. This discharge took greater then 30 minutes in planning, reviewing documentation, counseling the patient, and discussing with other team members." ASSESSMENT ASSESSMENT Assessment 59-year-old male with a known history of diabetes mellitus type 2, hypertension, dyslipidemia, morbid obesity classIII who initially presented to the hospital with a intractable headache found to have 1. Hypertensive urgency , resolved 2. Acute cephalgia currently resolved 3. Hyperglycemia in the setting of diabetes mellitus type 2 with a hemoglobin A1c more than10 4. Dyslipidemia 5. Morbid obesity classIII Date of Service: Mar 01, 2025 Billing Provider: CALEB RANGEL MD Common Visit Codes: [id number] DISCH DAY >30min CALEB RANGEL MD Mar 01, 2025 15:50
== END 2025-03-01 18:35 | disposition home or self-care (01) | DRG 199 ==
LOC: ER 14:43 → OVERFLOW 21:10 → TELE-EAST 02-27 17:57
PROVIDERS: ADMIT Internal Medicine; ATTEND Internal Medicine
DX: I16.0 Hypertensive urgency (principal); E11.65 Type 2 diabetes mellitus with hyperglycemia; I10 Essential (primary) hypertension; E66.813 Obesity, class 3; E78.5 Hyperlipidemia, unspecified; F17.210 Nicotine dependence, cigarettes, uncomplicated; Z68.41 Body mass index [BMI] 40.0-44.9, adult; Z79.4 Long term (current) use of insulin
CPT/HCPCS: 36415; 70450; 71045; 80048; 80307; 81001; 82962; 83036; 83735; 83880; 84443; 84484; 85025; 93005; 93306; 96361; 96374; 99291; G0378; J1815